=== PATIENT | male | born 1975 | race Caucasian/White ===

== ENCOUNTER 2021-12-06 20:03 | Emergency (ER) | payer OTHER ==
[~2021-12-06 20:03] MED LIST: ALLOPURINOL100 MG PO; ASPIR-LOW81 MG PO; BACTRIM DS TAB1 EACH PO; BACTROBAN NASAL1 G1 TOP; CATAPRES 0.1MG0.1 MG PO; GLUCOPHAGE XR500 MG PO; IBUPROFEN600 MG PO; LISINOPRIL20 MG PO; LOPRESSOR100 MG PO; LOVAZA1 GM PO; MAG OXIDE PO; NORCO 5-325 TA1 EACH PO; NORVASC 5 MG TAB5 MG PO; PROTONIX 40 MG40 M1 PO; TIZANIDINE HCL2 MG PO; ZYLOPRIM 100 M100 MG PO
[2021-12-06 23:39] LABS: HEMOGLOBIN 10.9 gm/dl (14.0-17.5); RED BLOOD COUNT 3.7 M/UL (4.20-5.50); WHITE BLOOD COUNT 6.6 K/UL (4.5-11.0)
== END 2021-12-07 00:50 | disposition left against medical advice (07) ==
LOC: ER1 20:03
PROVIDERS: Nurse Practitioner
DX: I10 Essential (primary) hypertension (principal); N17.9 Acute kidney failure, unspecified; Z88.0 Allergy status to penicillin
CPT/HCPCS: 80053; 85025; 99283